=== PATIENT | female | born 1990 | race Caucasian/White ===

== ENCOUNTER 2019-05-04 13:05 | Day surgery (SDC) | payer OTHER ==
[~2019-05-04] VITALS: Ht 167.6 cm; Wt 68.5 kg
[2019-05-04 15:00] VITALS: Ht 167.6 cm; Wt 68.5 kg
[2019-05-04 16:25] VITALS: BP 99/58; PULSE 72; RESP 14
[2019-05-04] MEDS ORDERED: FENTAnyl 50 MCG/ML VIAL ONE (17:39)
[2019-05-04] MEDS ORDERED: MIDAZOLAM 1 MG/ML 2 ML INJ ONE ×2 (17:40)
[2019-05-04 17:51] VITALS: BP 101/69; RESP 16
== END 2019-05-04 18:23 | disposition home or self-care (01) ==
LOC: GIL 13:05
PROVIDERS: ATTEND Internal Medicine
DX: K92.1 Melena (principal); K51.90 Ulcerative colitis, unspecified, without complications
CPT/HCPCS: 45380; 84703; 88305; J2250; J3010; Z7610; 87177